=== PATIENT | female | born 1990 | race African-American/Black ===

== ENCOUNTER 2017-11-28 10:08 | Outpatient (CLI) | payer MEDICAID ==
--- NOTE | 2017-11-28 13:18 | ULT ---
OBSTETRICAL ULTRASOUND: DATE: 11/28/17. COMPARISON: None available. HISTORY: A 27-year-old female. FINDINGS: Cervical length is approximately 3.8 cm. The placenta is located anteriorly demonstrating no evidenc e for previa or abruption. A single intrauterine gestation is present. A 3-vessel cord is noted. T he intracranial contents appear within normal limits. heart rate is 149 b.p.m. Four-chamber h eart view, stomach, urinary bladder, region of kidneys, spine, and amniotic fluid volume appear normal. ELVIS is 13.9 cm. nose and lips appear grossly unremarkable. presentation is transverse. BIOMETRY: BPD 7.2 cm, 28 weeks 6 days HC 26.9 cm, 29 weeks 2 days AC 25.6 cm, 29 weeks 6 days FL 5.6 cm, 29 weeks 3 days Average based on ultrasound is 19 weeks 2 days. Estimated date of delivery is 02/11/18. Estimated fet al weight is 1415 gm +/- 209 gm. IMPRESSION: Single live intrauterine gestation as detailed above. presentation is transverse with head mat ernal right. POS: [facility]
== END 2017-11-28 10:09 | disposition home or self-care (01) ==
LOC: ULT 10:08
PROVIDERS: ATTEND Family Medicine
DX: O09.293 Supervision of pregnancy with other poor reproductive or obstetric history, third trimester (principal); O32.2XX0 Maternal care for transverse and oblique lie, not applicable or unspecified; Z3A.29 29 weeks gestation of pregnancy
CPT/HCPCS: 76805

== ENCOUNTER 2018-07-26 00:03 | Observation (INO) | payer MEDICAID, OTHER ==
[2018-07-26 00:44] LABS: Bilirubin Negative (Negative); Blood, Urine Negative (Negative); Clarity TURBID (Clear); Glucose, Urine (Dipstick) Negative (Negative); Leukocyte Negative (Negative); Nitrite Negative (Negative); Protein, Urine (Dipstick) Negative (Neg-Trace); Specific Gravity, Urine 1.023 (1.002-1.036); pH, Urine 7.5 (5.0-9.0)
[2018-07-26 01:11] LABS: Specific Gravity 1.023 (1.002-1.036)
[2018-07-26 01:16] LABS: Pregnancy Test - Urine (BHCG) Negative (Negative); Pregu Control Background? CLEAR/WHITE (CLR/WHITE); Pregu Control Bar Appear? YES (CONTROL BAR)
[2018-07-26 01:17] LABS: Hemoglobin 9.1 g/dL (12.0-16.0); Mean Corpuscular HGB CONC 29.1 g/dL (32.0-36.0); Mean Corpuscular Hemoglobin 18.2 pg (27.0-31.0); Mean Corpuscular Volume 62.7 fL (78.0-98.0); Mean Platelet Volume 5.5 fL (7.4-10.4); Platelet Count 270 thou/uL (130-400); Red Blood Cell (RBC) Count 4.97 mill/uL (4.20-5.40)
[2018-07-26 01:21] LABS: White Blood Cell (WBC) Count 10.9 thou/uL (4.8-10.8)
[2018-07-26 01:22] LABS: ALT (SGPT) 66 U/L (8-55); AST (SGOT) 207 U/L (5-34); Alkaline Phosphatase 101 U/L (40-150); Anion Gap 14 mmol/L (10-20); BUN (Urea Nitrogen) 14 mg/dL (7.0-18.7); Bilirubin, Total 0.7 mg/dL (0.2-1.2); Calc. Creatinine Clearance 0 mL/min (70-130); Calcium 9.5 mg/dL (7.8-10.44); Carbon Dioxide 24 mmol/L (22-29); Chloride 103 mmol/L (98-107); Estimated GFR-MDRD Greater than 90; Globulin 3.7 g/dL (2.4-3.5); Glucose 97 mg/dL (70-105); Lipase 39 U/L (8-78); Potassium 4.8 mmol/L (3.5-5.1); Protein, Total 7.7 g/dL (6.0-8.3); Sodium 136 mmol/L (136-145)
[2018-07-26 01:29] LABS: #Basophils 0.1 thou/uL (0.0-0.2); #Eosinphils 0.1 thou/uL (0.0-0.7); #Lymphocytes 1.5 thou/uL (1.20-3.40); #Monocytes 0.5 thou/uL (0.11-0.59); #Neutrophils 8.7 thou/uL (1.40-6.50); %Basophils 0.7 % (0.0-1.0); %Eosinophils 0.5 % (0.0-10.0); %Lymphocytes 13.9 % (21.0-51.0); %Monocytes 4.6 % (0.0-10.0); %Neutrophils 80.3 % (42.0-75.0); Reflex for Review?? YES
[2018-07-26 01:30] LABS: Anisocytosis SLIGHT = 6-15 cells (100X) (0-5/hpf); Elliptocytes SLIGHT = 2-5 cells (100X) (0-1/hpf); Hypochromia SLIGHT = 6-15 cells (100X) (0-5/hpf); MDiff Complete? YES; Microcytosis MODERATE=15-30 cells (100X) (0-5/hpf)
[2018-07-26] MEDS ORDERED: Lidocaine Viscous Sol 2% 15 ml UD Cup ONE (02:05)
[2018-07-26] MEDS ORDERED: Mag-Al 1200 mg/1200 mg/30 ML UDCUP ONE (02:05)
[2018-07-26] MEDS ORDERED: Ketorolac Tromethamine 30 MG/ML VIAL ONE (02:57)
[2018-07-26] MEDS ORDERED: Morphine 4 MG/ML VIAL ONE (02:57)
[2018-07-26] MEDS ORDERED: Ondansetron ODT 4 MG TAB SL PRN (03:48)
[2018-07-26] MEDS ORDERED: Ondansetron PF 4 MG/2 ML Vial IVP PRN (03:48)
[2018-07-26] MEDS ORDERED: Acetaminophen 1,000 MG in Premix Bag 1 BAG IVPB PRN ×2 (06:04→10:38)
[2018-07-26] MEDS ORDERED: Morphine 4 MG/ML VIAL SLOW IVP PRN (07:00)
--- NOTE | 2018-07-26 08:07 | ULT ---
PRELIMINARY REPORT/[facility]/EMERGENTY AFTER-HOURS PROCEDURE US Abdomen Limited, Right Upper Quadrant EXAM DATE/TIME: 07/26/2018 1:42 AM CLINICAL HISTORY: 28 years old, female; Pain and signs and symptoms; Nausea and vomiting; Abdominal pain; Epigastric; P atient HX: Epigastric pain - radiates to upper back TECHNIQUE: Real-time ultrasound of the abdomen with image documentation. Examination was focused on the right up per quadrant. COMPARISON: No relevant prior studies available. FINDINGS: Liver: Liver echogenicity suggesting steatosis. Gallbladder: Multiple gallstones. Normal wall thickness. Negative Petersne's sign reported. Common bile duct: Common duct measuring 7 mm, not well seen distally. Pancreas: Visualized portion unremarkable. Right kidney: Unremarkable. No hydronephrosis. IMPRESSION: Cholelithiasis without evidence of cholecystitis. Mild biliary ductal dilatation. Thank you for allowing us to participate in the care of your patient. Dictated and Authenticated by: Ethan Cabrera MD 07/26/2018 2:25 AM Central Time ([place] & [place]) FINAL REPORT RIGHT UPPER QUADRANT ULTRASOUND: Date: 07/26/2018. COMPARISON: None. HISTORY: Nausea, vomiting, and abdominal pain, right upper quadrant pain. I agree with the preliminary [facility] report. The imaged pancreas is unremarkable. The body and tail a re obscured by bowel gas, however. No focal liver lesion or intrahepatic biliary dilatation. Multip le mobile echogenic foci within the gallbladder noted, evidence of cholelithiasis. No gallbladder wa ll thickening or pericholecystic fluid. The catalogue illustrator reports a negative Petersen's sign. For a patient of this age, the CBD is dilated measuring approximately 7 mm. The CBD cannot be visual ized distally. The right kidney measures 10.2 cm craniocaudal dimension and demonstrates no stone, h ydronephrosis, or mass. IMPRESSION: Cholelithiasis. Mild dilatation of common bile duct. Nonvisualized cause of biliary obstruction, in cluding choledocholithiasis, is a possibility. POS: [facility]
[2018-07-26] MEDS ORDERED: Pantoprazole 40 MG VIAL IVP SCH (09:00)
[2018-07-26] MEDS ORDERED: Ketorolac Tromethamine 30 MG/ML VIAL IVP PRN (10:38)
[2018-07-26] MEDS ORDERED: Ketorolac Tromethamine 30 MG/ML VIAL IVP SCH (10:45)
[2018-07-26] MEDS ORDERED: Acetaminophen 1,000 MG in Premix Bag 1 BAG IVPB SCH (10:45)
--- NOTE | 2018-07-26 11:06 | HP ---
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 She has had episodic epigastric right upper quadr ant pain for several years, becoming worse, presented to emergency room. Ultrasound reveals a 7 mm b ile duct, cholelithiasis. Bilirubin, alkaline phosphatase normal. Transaminases are mildly elevated . White count 10, hemoglobin 9.1. ALLERGIES: None. SOCIAL HISTORY: Tobacco half pack per day. ALCOHOL: None. MEDICATIONS: None. PAST SURGICAL HISTORY: Laparoscopic ovarian cyst. PAST MEDICAL HISTORY: Noncontributory. REVIEW OF SYSTEMS: Noncontributory. PHYSICAL EXAMINATION: VITAL SIGNS: Weight 164 pounds, in no distress, 98.1, 57 heart rate, 107/52. HEENT: Sclerae nonicteric. SKIN: Nonjaundiced. LUNGS: Clear to auscultation. CARDIAC: Regular rate and rhythm without murmur or gallop. ABDOMEN: Soft, nontender, no guarding. EXTREMITIES: Unremarkable. ASSESSMENT AND PLAN: Chronic cholecystitis and cholelithiasis. PLAN: Laparoscopic cholecystectomy. Risk of infection, bleeding, visceral and biliary injury discus sed. Questions answered.
[2018-07-26] MEDS: Lactated Ringer's 1,000 ML IV SCH ×2 (11:07→17:54)
[2018-07-26] MEDS ORDERED: Scopolamine 1.5 mg/72 hour Patch TD SCH (11:30)
[2018-07-26] MEDS ORDERED: PROPOFOL 200 MG/20 ML VIAL ONE (17:23)
[2018-07-26] MEDS ORDERED: Lidocaine 1% PF 5 ML VIAL ONE (17:23)
[2018-07-26] MEDS ORDERED: Dexamethasone 20 MG/5 ML VIAL ONE (17:23)
[2018-07-26] MEDS ORDERED: PHENYLEPHRINE-NS 100 MCG/ML 10 ML SYRINGE ONE (17:23)
[2018-07-26] MEDS ORDERED: Iothalamate Meglumine 60% 50 ML VIAL FS ONE (19:15)
[2018-07-26] MEDS ORDERED: Bupivacaine HCl 0.5%/Epinephrine 1:200,000/PF 30 ml Vial ONE (19:15)
[2018-07-26] MEDS ORDERED: Fentanyl 100 MCG/2 ML VIAL ONE (19:16)
[2018-07-26] MEDS ORDERED: Ondansetron HCl/PF 4 MG/2 ML Vial IVP PRN (20:04)
[2018-07-26] MEDS ORDERED: Promethazine HCl 25 MG/ML VIAL SLOW IVP PRN (20:04)
[2018-07-26] MEDS ORDERED: Meperidine HCl/PF 25 MG/ML VIAL SLOW IVP PRN (20:04)
[2018-07-26] MEDS ORDERED: Promethazine HCl 25 MG/ML VIAL IM PRN (20:04)
[2018-07-26] MEDS ORDERED: traMADol HCl 50 MG TAB PO PRN ×2 (20:24)
[2018-07-26] MEDS ORDERED: Acetaminophen 500 MG TAB PO PRN (20:24)
[2018-07-26] MEDS ORDERED: Ibuprofen 600 MG TAB PO PRN (20:24)
--- NOTE | 2018-07-26 20:38 | RAD ---
ONE VIEW INTRAOPERATIVE CHOLANGIOGRAM 07/26/18 Intraoperative cholangiogram is obtained. Images demonstrate catheterization and injection of the cys tic duct with free flow of contrast into the common bile duct, common hepatic duct and into the duode num. No evidence of obstructing calculi seen. IMPRESSION: Free flow of cystic duct injected contrast into the duodenum. POS: [facility]
[2018-07-26 21:59] VITALS: BP 117/66; TEMP 98.5
--- NOTE | 2018-07-27 02:24 | OP ---
DATE OF PROCEDURE: 07/26/2018 PREOPERATIVE DIAGNOSES: Cholecystitis, cholelithiasis, slightly elevated liver function tests, bile duct 7 mm. POSTOPERATIVE DIAGNOSES: Cholecystitis, cholelithiasis, slightly elevated liver function tests, bile duct 7 mm. PROCEDURE: Laparoscopic video cholecystectomy, normal cholangiogram. Fluoroscopy used. SURGEON: Cesar Field M.D. ANESTHESIA: General. Local 0.5% Marcaine with epinephrine 30 mL. PROCEDURE IN DETAIL: The patient was taken to the operating room, where under general anesthesia, ab naylor was prepared with ChloraPrep, draped in routine fashion. Local anesthetic of 0.5% Marcaine wit h epinephrine infiltrated into skin and subcutaneous tissue about each port site. Infraumbilical inc ision made. Pneumoperitoneum to 15 mmHg obtained with the Veress needle, replacing it with a 5 port and laparoscope inserted. Right subxiphoid incision made and 11 port placed. Right subcostal incisi on made, mid clavicular and anterior axillary lines and 5 ports placed. Liver appeared to be normal as was the gallbladder, fundus grasped and reflected cephalad. Infundibulum grasped and reflected la terally. Cystic artery and duct dissected free. Critical view obtained. Cystic artery was double c lipped proximally. Cystic duct was clipped on the gallbladder side. Opening made in the cyst ic duct, cholangiocath inserted and cholangiogram was obtained. Using fluoroscopy revealing free haley w of contrast into the duodenum without filling defects in the common hepatic, common bile, left and right hepatic ducts. Cholangiocath removed. Cystic duct stump doubly clipped. Cystic artery and du ct divided. Gallbladder dissected free from the liver bed obtaining good hemostasis prior to divisio n of final peritoneal attachments. Gallbladder and contents removed and submitted to Pathology. Goo d hemostasis ensured. Irrigant and pneumoperitoneum evacuated. All instruments removed and all skin incisions approximated with interrupted subdermal 4-0 Monocryl and DermaGlue applied.
--- NOTE | 2018-07-27 04:08 | DIS ---
DATE OF ADMISSION: 07/26/2018 DATE OF DISCHARGE: 07/26/2018 DISCHARGE DIAGNOSES: Chronic cholecystitis, cholelithiasis or tobacco use. PROCEDURES: Ultrasound of gallbladder, laparoscopic video cholecystectomy, normal cholangiogram. SURGEON: Cesar Field M.D. DISCHARGE MEDICATIONS: Tylenol and ibuprofen [id number], Ultram 50, 1-2 p.o. q.i.d. p.r.n. henry n. Follow up in my office in 2-3 weeks. HISTORY: A 28-year-old female several years with episodes of biliary colic for several ye ars, presents to the emergency room with worsening symptoms. Ultrasound verifying gallstones, mildly elevated transaminases, normal bilirubin and alkaline phosphatase, and bile duct 7 mm, underwent lap aroscopic video cholecystectomy and cholangiogram, home postoperatively. Follow up in my office in 2 -3 weeks. Diet and activity as tolerated. No activity restrictions.
[2018-07-27] MEDS ORDERED: Polyethylene Glycol 3350 17 GM Packet PO SCH (09:00)
== END 2018-07-26 22:15 | disposition home or self-care (01) ==
LOC: ERS 00:03 → 3SE 02:44
PROVIDERS: ADMIT Surgery; ATTEND Surgery
PROC: 0FT44ZZ Resection of Gallbladder, Percutaneous Endoscopic Approach (ICD-10-PCS; principal; 2018-07-26)
PROC: BF131ZZ Fluoroscopy of Gallbladder and Bile Ducts using Low Osmolar Contrast (ICD-10-PCS; 2018-07-26)
DX: K80.10 Calculus of gallbladder with chronic cholecystitis without obstruction (principal); F17.210 Nicotine dependence, cigarettes, uncomplicated
CPT/HCPCS: 36415; 47532; 76705; 80053; 81003; 81025; 83690; 85025; 85060; 88304; 90471; 90686; 96361; 96365; 96366; 96374; 96375; 96376; C9113; G0008; G0378; J0131; J0670; J1100; J1610; J1885; J1956; J2001; J2270; J2405; J2704; J3010; Q9961

== ENCOUNTER 2019-09-01 12:51 | Emergency (ER) | payer OTHER | END 2019-09-01 13:52 | disposition home or self-care (01) | LOC: ERS 12:51 | DX: B34.9 Viral infection, unspecified (principal); F17.210 Nicotine dependence, cigarettes, uncomplicated; Z71.6 Tobacco abuse counseling | CPT/HCPCS: 99406 ==

== ENCOUNTER 2020-01-07 05:11 | Emergency (ER) | payer MEDICAID, SELFPAY ==
[2020-01-07] MEDS ORDERED: Ketorolac Tromethamine 30 MG/ML VIAL ONE (05:48)
[2020-01-07] MEDS ORDERED: Misoprostol 200 MCG TAB PO SCH (06:00)
== END 2020-01-07 06:25 | disposition home or self-care (01) ==
LOC: ERS 05:11
DX: O99.89 Other specified diseases and conditions complicating pregnancy, childbirth and the puerperium (principal); R10.30 Lower abdominal pain, unspecified; O99.311 Alcohol use complicating pregnancy, first trimester; F17.210 Nicotine dependence, cigarettes, uncomplicated; Z3A.09 9 weeks gestation of pregnancy
CPT/HCPCS: 96372; J1885